=== PATIENT | female | born 1930 | race Caucasian/White ===

== ENCOUNTER 2017-07-04 12:55 | Inpatient (IN) | payer MEDICARE ==
[~2017-07-04] VITALS: Ht 157.5 cm; Wt 62.4 kg
[~2017-07-04 12:55] MED LIST: ARICEPT10 MG PO; ASPIRIN81 MG PO; Imdur PO; LAC-HYDRIN 5226 ML TOPICAL; LIDOCAINE HC10 MG/M3 IM; NITROSTAT0.4 MG SL; PEPCID20 MG PO; PREMARIN45 GM VG; PRILOSEC20 MG PO; PRINIVIL10 MG PO; PROZAC10 MG PO; Rocephin INJ IM; VITAMIN B-121000 MCG PO; VITAMIN D5000 UNIT PO; ZESTRIL40 MG PO
[2017-07-04] MEDS ORDERED: ACETAMINOPHEN325 MG PO (13:14)
[2017-07-04] MEDS ORDERED: IMODIUM2 MG PO (13:14)
[2017-07-04] MEDS ORDERED: ZOFRAN4 MG PO (13:15)
[2017-07-04 13:43] VITALS: BP 120/50; BMI 26.0
--- NOTE | 2017-07-04 14:30 | NUR ---
PATIENT IS ADMITTED TO DR. LYON AND DR. SALGUERO, SHE IS BROUGHT IN BY TWO EMS STAFF VIA STRETCHER FROM [facility]. APPARENTLY THIS AM SHE PUT HER CALL LIGHT ON AND WHEN A HEALTH POLICY MANAGER WENT IN TO ASSIST THE PATIENT, THE PATIENT BECAME VOLATILE VERBALLY, CURSING AND STATING "WHY THE HELL DID IT TAKE YOU SO LONG" PATIENT CONTINUED TO RANT AND RAVE AND THE HEALTH POLICY MANAGER LEFT THE ROOM TO ALLOW THE PATIENT TO CARRY ON ALONE. PATIENT THEN GOT UP OUT OF THE BED BY HERSELF AND WHEELED HERSELF TO WHERE THE HEALTH POLICY MANAGER WAS AND BEGAN KICKING, HITTING AND CURSING HER, ANOTHER STAFF MEMBER ATTEMPTED TO DEESCALATE THE PATIENT, BUT THE PATIENT THEN BEGAN CURSING THAT INDIVISUAL WELL. ON ARRIVAL PATIENT IS TRANSFERRED TO A W/C. SHE STARTS OFF PLEASANT AND COMPLIANT THEN SHE BEGINS TO CURSE AND TOLD THIS NURSE "F" YOU" EXPLAINED TO THE PATIENT THAT THAT IS INAPPROPRIATE BEHAVIOR. SHE HAS ASKED TO GO TO BED, BUT WE HAVE EXPLAINED THE RULES. SHE IS NOT HAPPY ABOUT THAT. SHE IS WEARING TWO RINGS, BOTH WHITE METAL ONE WITH A FLOWER DESIGN THE OTHER WITH PAINTED FLOWER DESIGN. PATIENT PREFERS TO KEEP THEM ON. PATIENT IS IN THE DAY ROOM AND HAS REFUSED TO LET LAB DRAW BLOOD FROM HER. DID CALL PATIENTS DAUGHTER TO GET A CODE WORD AND VERBAL CONSENTS. THE DAUGHTER SAYS HER MOTHER IS DIABETIC, AND HAS LUPUS, BUT THERE IS NO DOCUMENTATION FROM THE CUSTODIAL STATING EITHER ONE. PATIENT HAS HAD A RIGHT BREAST MASTECTOMY D/T CA.
[2017-07-04 19:30] VITALS: BP 117/29
--- NOTE | 2017-07-05 04:38 | NUR ---
B] PATIENT IS ALERT AND ORIENTED TO SELF, VERBALLY AGGRESSIVE AND INTRUSIVE, IMPATIENT, PATIENT STATED THAT IF WE DID NOT GET HER TO BED SHE WOULD THROW HERSELF IN THE FLOOR, I] ADMINISTERED SCHEDULED MEDICATIONS, MONITORED FOR SAFETY AND BEHAVIORS, R] MEDICATION COMPLIANT, DEFIANT AND LOOKING FOR A REASON TO BE MAD, P] CONTINUE PLAN OF CARE.
[2017-07-05 05:55] LABS: BASOPHILS 0.3 % (0-2); EOSINOPHILS 4.8 % (0-7); HEMATOCRIT 35.5 % (36.0-48.0); HEMOGLOBIN 11.5 g/dL (12-16); IMMATURE GRANULOCYTES 0.8 % (0-5); LYMPHOCYTES 24.5 % (15-50); MCH 30.7 pg (26.0-34.0); MCHC 32.4 g/dL (31.0-37.0); MCV 94.7 fL (80.0-100.0); MEAN PLATELET VOLUME 13.9 fL (7.4-10.4); MONOCYTES 11.5 % (2-11); NEUTROPHILS 58.1 % (40-80); RBC 3.75 10x6/uL (4.00-5.40); RDW 13.9 % (11.5-14.5); WBC 6.5 10x3/uL (4.8-10.8)
[2017-07-05 05:56] LABS: PLATELET COUNT 123 10x3/uL (130-400)
[2017-07-05 06:12] LABS: HEMOGLOBIN A1C 5.2 % (4.8-6.0)
[2017-07-05 07:00] VITALS: BP 134/33
[2017-07-05 10:30] LABS: ALBUMIN 3.3 g/dL (3.4-5.0); ANION GAP 19.6 mmol/L (8-16); BILIRUBIN - TOTAL 0.26 mg/dL (0.2-1.3); CALCIUM 10.8 mg/dL (8.5-10.1); CARBON DIOXIDE 18.4 mmol/L (21.0-32.0); CHOL - HDL RATIO 5.6 ratio (2.3-4.1); CREATININE - SERUM 4.3 mg/dL (0.6-1.3); LDL-HDL RATIO 3.8 ratio (1.5-3.5); PROTEIN - SERUM 7.3 g/dL (6.4-8.2); THYROID STIMULATING HORMONE 12.04 uIU/mL (0.36-3.74)
--- NOTE | 2017-07-05 10:46 | NUR ---
ATIVAN 0.5 PO GIVEN FOR ANXIETY.C/O SOB ,PULSE OX 99% ON ROOMAIR,HR 78 AND REGULAR.RESP.REG AND EVEN.SKIN PINK AND DRY.
--- NOTE | 2017-07-05 16:48 | NUR ---
RECEIVED SITTING UP IN WHEELCHAIR THIS AM.KNOWS SHE IS IN HOSPITAL BUT BECOMES AGGITATED WHEN ASKED IF SHE KNEW YEAR,YELLED "IM TIRED OF PEOPLE ASKING ME STUPID QUESTIONS".EXPLAINED TO HER I HAVE TO ASK EVERYONE .TOLD ME TO GET AWAY FROM HER.REFUSED BLOOD DRAW THIS AM BUT WAS COMPLIANT WITH MEDS.WILL CONTINUE WITH PLAN OF CARE,MONITOR FOR CHANGES AND SAFETY.SLEEPS MOST OF DAY IN RECLINER.
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
[2017-07-05 19:30] VITALS: BP 99/41
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
[2017-07-06 07:00] VITALS: BP 124/39
--- NOTE | 2017-07-06 08:30 | NUR ---
CALM AND COOPERATIVE WITH ASSESSMENT, SITTING IN RECLINER, DENIES ANY NEEDS AT THIS TIME. ASSESSMENT COMPLETED. WILL CONTINUE TO MONITOR CARE.
[2017-07-06 10:22] LABS: ANION GAP 18.2 mmol/L (8-16); CALCIUM 10.5 mg/dL (8.5-10.1); CREATININE - SERUM 4.2 mg/dL (0.6-1.3); POTASSIUM - SERUM 5.2 mmol/L (3.5-5.1)
[2017-07-06 10:27] LABS: HEMOGLOBIN A1C 6.1 % (4.8-6.0)
[2017-07-06 10:41] VITALS: Ht 157.5 cm; Wt 62.4 kg
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
--- NOTE | 2017-07-06 10:55 | NUR ---
ASSISTED PATIENT TO BATHROOM WITHOUT INCIDENT. SHE IA ABLE TO ASSIT WITH TRANSFER.
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
[2017-07-06 19:54] VITALS: BP 112/42
--- NOTE | 2017-07-06 20:45 | NUR ---
RECEIVED IN DAYROOM. SITTING IN A RECLINER. KEEPING TO HERSELF. NOT SOCIALIZING. CALM AND COOPERATIVE WITH CARE AND ASSESSMENTS. SHE WAS PULLING DRESSING ON WRIST OFF. REDIRECTED AND REORIENTED NEEDED. RESTING IN BED EYES OPEN AT THIS TIME. CONTINUE PLAN OF CARE
[2017-07-07 08:00] VITALS: BP 110/30
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
--- NOTE | 2017-07-07 11:10 | NUR ---
AWAKE AND ALERT THIS AM. ASSESSMENT COMPLETED. CALM AND COOPERATIVE WITH CARE. COMPLIANT WITH TAKING PRESCRIBED MEDICATIONS. SITTING QUIETLY IN RECLINER, WITH NO AGGRESSIVE BEHAVIOR. WILL CONTINUE PLAN OF CARE.
[2017-07-07 14:24] LABS: APPEARANCE CLEAR (CLEAR); BACTERIA MODERATE /hpf (NONE SEEN); BILIRUBIN NEGATIVE (NEGATIVE); COLOR YELLOW (YELLOW); GLUCOSE NEGATIVE (NEGATIVE); KETONE NEGATIVE (NEGATIVE); LEUKOCYTE ESTERASE TRACE (NEGATIVE); NITRITE NEGATIVE (NEGATIVE); PROTEIN TRACE mg/dL (NEGATIVE); UROBILINOGEN NORMAL (NORMAL); WHITE CELLS - URINE 0-5 /hpf (0-5)
[2017-07-07 14:25] LABS: MUCUS <1+ /lpf (NONE SEEN)
--- NOTE | 2017-07-07 20:07 | NUR ---
RECEIVED IN DAYROOM. SITTING IN RECLINING CHAIR. CONFUSED. CALM AND COOPERATIVE WITH CARE AND ASSESSMENTS. NO SIGNS OF AGGRESSION. REDIRECT AND REORIENT NEEDED. CONTINUES TO SIT QUIETLY IN RECLINER. CONTINUE PLAN OF CARE
[2017-07-07 21:15] VITALS: BP 109/40
[2017-07-08 06:14] LABS: RAPID PLASMA REAGIN Non Reactive (Non Reactive)
[2017-07-08 07:48] LABS: ANION GAP 16.3 mmol/L (8-16); CALCIUM 10.2 mg/dL (8.5-10.1); CARBON DIOXIDE 19.7 mmol/L (21.0-32.0); CREATININE - SERUM 3.3 mg/dL (0.6-1.3)
[2017-07-08 07:58] VITALS: BP 112/32
[2017-07-08 09:16] LABS: FOLATE (FOLIC ACID) - SERUM 10.3 ng/mL (>3.0)
[2017-07-08 10:17] LABS: VITAMIN D 25 HYDROXY 56.1 ng/mL (30.0-100.0)
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
--- NOTE | 2017-07-08 14:31 | NUR ---
B) PATIENT IS ALERT AND ORIENTED TO SELF ONLY, SHE CAN BE TERSE AND IRRITABLE. SHE IS CONFUSED, SHE HAS NO INSIGHT INTO HER SITUATION OR ILLNESS. SHA CAN STAND TO TRANSFER WITH ASSIST. PATIENT HAS NOT SHOWN ANY AGGRESSION TODAY, BUT SHE CAN CURSE AND MOUTH AT TIMES. I) PROVIDE PRESCRIBED MEDS. R) PATIENT IS COMPLIANT WITH MEDS, CRUSHED IN ICE CREAM SHE DOES WELL. P) CONTINUE POC.
[2017-07-08 19:55] VITALS: BP 127/68
--- NOTE | 2017-07-09 00:28 | NUR ---
B) Patient is alert and oriented to self, watching TV, friendly and pleasant to staff, no outburst or cussing noted. I) Administered scheduled medications, monitored for safety, R) Medication compliant. cooperative and calm this shift. P) Continue plan of care.
[2017-07-09 08:23] VITALS: BP 112/35
--- NOTE | 2017-07-09 14:00 | NUR ---
B) PATIENT IS AWAKE AND ALERT, SHE IS PLEASANT AND HAS NOT BEEN AGGRESSIVE TODAY. SHE DOES NOT WALK, BUT CAN SELF PROPEL IN THE W/C. I) PROVIDE PRESCRIBED MEDS. R) PATIENT IS COMPLIANT WITH MEDS. P) CONTINUE POC.
[2017-07-09 19:34] VITALS: BP 110/36
--- NOTE | 2017-07-10 02:19 | NUR ---
B) Patient is alert and oriented to self, calm and cooperative, quiet and keeping to herself, I) Administered scheduled medications, monitored for safety, R) Medication compliant, pleasant and friendly, P) Continue plan of care.
[2017-07-10 07:53] VITALS: BP 114/42
--- NOTE | 2017-07-10 07:53 | PN ---
PATIENT:KEATON COLLADO MEDICAL RECORD: [id number] LOCATION:[facility] ADMISSION DATE: 07/04/17 PROGRESS NOTE DATE OF SERVICE: 07/09/2017 SUBJECTIVE: No new complaint. OBJECTIVE: The patient has been very cooperative. She is taking medications as prescribed. On exam, mood is euthymic. Affect is bland. Speech is somewhat terse today. Content of thought is negative for overt psychosis. Sensorium is unchanged. ASSESSMENT: No change in diagnosis. PLAN: 1. Continue all current medications. 2. Continue supportive therapy. TRANSINT:[id number] Voice Confirmation ID: [id number] DOCUMENT ID: [id number] BHAKTI BLANTON III, MD at 0753 CC: [id number] DICTATION DATE: 07/09/17 1203 RENAL MEDICINE SPECIALIST: 07/09/17 1258 ADM IN [place] [id number] [place] [address]
--- NOTE | 2017-07-10 08:15 | NUR ---
OBTAINED URINE SPECIMEN, BASIA VÁSQUEZ TAKING TO LAB.
[2017-07-10 09:54] LABS: APPEARANCE CLEAR (CLEAR); BACTERIA FEW /hpf (NONE SEEN); BILIRUBIN NEGATIVE (NEGATIVE); COLOR DK YELLOW (YELLOW); EPITHELIAL CELLS 0-5 /hpf (0-5); GLUCOSE NEGATIVE (NEGATIVE); KETONE NEGATIVE (NEGATIVE); LEUKOCYTE ESTERASE NEGATIVE (NEGATIVE); MUCUS >1+ /lpf (NONE SEEN); NITRITE NEGATIVE (NEGATIVE); PROTEIN NEGATIVE (NEGATIVE); RED CELLS - URINE OCC /hpf (0-5); SPECIFIC GRAVITY 1.025 (1.005-1.020); UROBILINOGEN NORMAL (NORMAL); WHITE CELLS - URINE RARE /hpf (0-5)
[2017-07-10 09:55] LABS: HYALINE CAST OCC /lpf (NONE SEEN); WAXY CAST RARE /lpf (NONE SEEN)
[2017-07-10 19:51] VITALS: BP 114/36
--- NOTE | 2017-07-10 21:40 | PN ---
PATIENT:KEATON COLLADO MEDICAL RECORD: [id number] LOCATION:[facility] ADMISSION DATE: 07/04/17 PROGRESS NOTE DATE OF SERVICE: 07/10/2017 SUBJECTIVE: No new complaint is noted. OBJECTIVE: The patient has been generally cooperative. She is irritable from time to time. On exam, mood is for the most part euthymic. Affect is somewhat brittle. Speech tends to be terse. Content of thought shows no evidence of psychosis. Sensorium shows no change. ASSESSMENT: No change in diagnosis. PLAN: 1. Continue all current medications. 2. Continue supportive therapy. TRANSINT:[id number] Voice Confirmation ID: [id number] DOCUMENT ID: [id number] BHAKTI BLANTON III, MD at 2140 CC: [id number] DICTATION DATE: 07/10/17 1233 JEWEL GRINDER: 07/10/17 1327 ADM IN [place] [id number] [place] [id number]
--- NOTE | 2017-07-11 03:35 | NUR ---
B) Patient alert and oriented to self and hospital, calm and cooperative with care and assessment, patient able to make her needs known, I) Administered scheduled medications, monitored for falls and safety, redirected as needed. R) Medication compliant, pleasant and friendly. P) Continue plan of care.
[2017-07-11 10:20] VITALS: BP 134/55
--- NOTE | 2017-07-11 10:30 | NUR ---
ASSESSMENT COMPLETED. AWAKE AND ALERT. ADMINISTERED PRESCRIBED MEDICATIONS. COMPLIANT WITH TAKING MEDICATIONS. RESTING IN RECLINER. CONTINUE PLAN OF CARE.
[2017-07-11 19:30] VITALS: BP 97/56
--- NOTE | 2017-07-12 04:10 | NUR ---
B) Patient alert and oriented to self and being in a hospital, restless and anxious at HS, stated that she could not breath, pulseox at 98%, I) Administered scheduled medications, PRN Ativan 0.5 mg PO given at 22:30 for anxiety, repositioned patient. R) Medication compliant, resting quietly at 23:00 P) Continue plan of care.
[2017-07-12 07:00] VITALS: BP 100/55
[2017-07-12 07:07] LABS: BASOPHILS 0.2 % (0-2); EOSINOPHILS 3.6 % (0-7); HEMATOCRIT 27.5 % (36.0-48.0); HEMOGLOBIN 9.3 g/dL (12-16); IMMATURE GRANULOCYTES 0.3 % (0-5); LYMPHOCYTES 19.9 % (15-50); MCH 31.1 pg (26.0-34.0); MCHC 33.8 g/dL (31.0-37.0); MEAN PLATELET VOLUME 13.4 fL (7.4-10.4); PLATELET COUNT 132 10x3/uL (130-400); RBC 2.99 10x6/uL (4.00-5.40); RDW 13.7 % (11.5-14.5); WBC 8.8 10x3/uL (4.8-10.8)
[2017-07-12 07:14] LABS: ANION GAP 15.7 mmol/L (8-16); CALCIUM 9.9 mg/dL (8.5-10.1); CARBON DIOXIDE 22.1 mmol/L (21.0-32.0); CREATININE - SERUM 2.9 mg/dL (0.6-1.3); POTASSIUM - SERUM 4.8 mmol/L (3.5-5.1)
--- NOTE | 2017-07-12 12:59 | NUR ---
ATIVAN GIVEN PO THIS AM FOR ANXIETY,CURSEING AND YELLING AT STAFF.GOOD RESPONSE TO ATIVAN.IS ORIENTED TO SELF AND HOSPITAL BUT NOT TO RESIDENTIAL,OR REASON FOR BEING HERE.COMPLIANT WITH MEDS.WILL CONTINUE WITH PLAN OF CARE,MONITOR FOR CHANGES AND NEEDS.
--- NOTE | 2017-07-13 00:18 | NUR ---
RECEIVED IN BEDROOM. LAYING IN BED EYS CLOSEED. RESPONDS TO VOICE. CALM AND COOPERATIVE WITH CARE AND ASSESSMENTS. NO SIGNS OF AGGRESSION. REDIRECT AND REORIENT NEEDED. RESTING EYES CLOSED AT THIS TIME. CONTINUE PLAN OF CARE
[2017-07-13 08:30] VITALS: BP 108/43
--- NOTE | 2017-07-13 09:48 | PN ---
PATIENT:KEATON COLLADO MEDICAL RECORD: [id number] LOCATION:[facility] ADMISSION DATE: 07/04/17 PROGRESS NOTE DATE OF SERVICE: 07/08/2017 SUBJECTIVE: The patient's case was discussed with staff. She has no new complaint. OBJECTIVE: The patient denies intent to harm herself or others. She generally tolerates her medicines well. She is significantly impaired and has not been aggressive today. ASSESSMENT: No change in diagnoses. PLAN: Supportive and educational interventions were made. Care Home prognosis is guarded. TRANSINT:[id number] Voice Confirmation ID: [id number] DOCUMENT ID: [id number] BRIANNA LYON MD at 0948 CC: [id number] DICTATION DATE: 07/08/17 1258 WATERSHED PROGRAM MANAGER: 07/08/17 1431 ADM IN [facility] [address] [place] [address]
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
--- NOTE | 2017-07-13 11:26 | PN ---
PATIENT:KEATON COLLADO MEDICAL RECORD: [id number] LOCATION:[facility] ADMISSION DATE: 07/04/17 PROGRESS NOTE DATE OF SERVICE: 07/12/2017 SUBJECTIVE: No new complaint. OBJECTIVE: The patient continues to be somewhat intrusive and shows some lability of affect. On exam, mood is slightly irritable. Affect is brittle. Speech is somewhat tangential and coarse. Content of thought is unchanged. Sensorium is unchanged. ASSESSMENT: No change in diagnoses. PLAN: 1. Continue all current medications. 2. Continue supportive therapy. TRANSINT:[id number] Voice Confirmation ID: [id number] DOCUMENT ID: [id number] BHAKTI BLANTON III, MD at 1126 CC: [id number] DICTATION DATE: 07/12/172149 HYDRAULIC TECHNICIAN: 07/13/17 0017 ADM IN [facility] [address] [place] [address]
[2017-07-13 19:25] VITALS: BP 99/41
--- NOTE | 2017-07-13 19:53 | NUR ---
RECEIVED IN HALLWAY, OUTSIDE OF NURSES STAION. MAKING NEGATIVE STATEMENTS TO STAFF. CALM AND COOPERATIVE WITH CARE AND ASSESSMENTS. REDIRECT AND REORIENT NEEDED. CONTINUES TO SIT IN HALLWAY. CONTINUE PLAN OF CARE
[2017-07-14 07:00] VITALS: BP 104/43
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
--- NOTE | 2017-07-14 10:07 | NUR ---
NUTRITION F/U CHART REVIEWED, PT TOLERATING REG DIET. ENSURE BID. 25 TO 50% INTAKE RECENT MEALS. +BM RECORDED. WILL CONTINUE TO PROVIDE DIET, ENSURE. MONITOR PO INTAKE. RD FOLLOWING
--- NOTE | 2017-07-14 11:00 | NUR ---
AWAKE AND ALERT TO NAME ONLY. SAYS SHE DOESN'T FEEL GOOD. ADMINISTER PRESCRIBED MEDS AND COMPLIANT WITH TAKING. LYING ON SOFA RESTING THIS AFTERNOON. REFUSES TO EAT LUNCH AND SUPPER. SHE DID DRINK AN ENSURE. SAFETY MAINTAINED. WILL CONTINUE PLAN OF CARE.
--- NOTE | 2017-07-14 13:26 | NUR ---
PT WAS MEDICATED WITH [id number] MG D/T ABD PAIN RATING 8/10 ON PAIN SCALE.
[2017-07-14 19:37] VITALS: BP 111/34
--- NOTE | 2017-07-14 19:57 | NUR ---
RECEIVED IN HALLWAY. SITTING IN A WHEELCHAIR OUTSIDE OF NURSES STATION. CALM AND COOPERATIVE WITH CARE AND ASSESSMENTS. NO SIGNS OF AGGRESSION. REDIRECT AND REORIENT NEEDED. CONTINUES TO SIT QUIETLY IN CHAIR. CONTINUE PLAN OF CARE
[2017-07-15 08:48] VITALS: BP 114/43
--- NOTE | 2017-07-15 10:00 | NUR ---
Rec'd pt in dining room for b'fast, alert, calm, no aggressioin noted. Meds admin per orders. Group therpay provided. No s/s adverse reaction to meds. Participated in group. Cont plan of care including meds and group therapy.
--- NOTE | 2017-07-15 15:29 | PN ---
PATIENT:KEATON COLLADO MEDICAL RECORD: [id number] LOCATION:[facility] ADMISSION DATE: 07/04/17 PROGRESS NOTE DATE OF SERVICE: 07/14/2017 SUBJECTIVE: The patient's case was discussed with staff. She has no new complaint. OBJECTIVE: The patient denies intent to harm herself or others. She tolerates her medicines well. Eye contact is poor. ASSESSMENT: No change in diagnoses. PLAN: The patient was aggressive yesterday, but has not been aggressive today. She has very limited insight about her situation. Her current medicines have been reviewed and will be maintained. Both supportive and educational interventions were made. TRANSINT:[id number] Voice Confirmation ID: [id number] DOCUMENT ID: [id number] BRIANNA LYON MD at 1529 CC: [id number] DICTATION DATE: 07/14/17 1444 BAR MACHINE OPERATOR: 07/14/171950 ADM IN [facility] [address] [place] [address]
[2017-07-15 19:30] VITALS: BP 101/48
--- NOTE | 2017-07-15 20:40 | NUR ---
B) RECEIVED IN HALLWAY SITTING IN W/C. CALM AND COOPERATIVE WITH CARE, NO AGGRESSIVE BEHAVIOR NOTED. I) ADMINISTERED MEDS, ASSESSMENT COMPLETED, VSS. R) MEDICATIONS COMPLIANT, MAINTAINED SAFETY PRECAUTIONS. P CONTINUE PLAN OF CARE.
[2017-07-16 09:41] VITALS: BP 114/51
--- NOTE | 2017-07-16 12:33 | PN ---
PATIENT:KEATON COLLADO MEDICAL RECORD: [id number] LOCATION:[facility] ADMISSION DATE: 07/04/17 PROGRESS NOTE DATE OF SERVICE: 07/15/2017 SUBJECTIVE: The patient's case was discussed with staff. She has no new complaint. OBJECTIVE: The patient is in good behavioral control with limited insight about her condition. She tolerates her medicines well. ASSESSMENT: No change in diagnoses. PLAN: Brief supportive and educational interventions were made. The patient's long-term prognosis is guarded. TRANSINT:[id number] Voice Confirmation ID: [id number] DOCUMENT ID: [id number] BRIANNA LYON MD at 1233 CC: [id number] DICTATION DATE: 07/15/17 1548 SHEET CATCHER: 07/15/17 2157 ADM IN [place] [address] [place] [address]
--- NOTE | 2017-07-16 14:00 | NUR ---
B) PATIENT IS ALERT AND ORIENTED TO HERSELF ONLY, SHE PARTICIPATES IN GROUPS AND ACTIVITES. I) PROVIDE PRESCRIBED MEDS. R) PATIENT IS COMPLIANT WITH MEDS, SHE CURSES LIKE A SPINNER CONCRETE PIPE AND SHE KNOWS IT, BUT LAUGHS ABOUT IT. SHE HAS NOT SHOWN ANY AGITATION OR AGGRESSION TODAY. P) CONTINUE POC.
[2017-07-16 19:56] VITALS: BP 92/58
--- NOTE | 2017-07-17 04:12 | NUR ---
B) Patient alert and oriented to self and hospital, grumpy curses at times, watching TV, social with staff, I) Administered scheduled medications, monitored for safety and falls, R) Medication compliant, no behaviors noted, P) Continue plan of care.
[2017-07-17 09:30] VITALS: BP 131/69
--- NOTE | 2017-07-17 11:54 | PN ---
PATIENT:KEATON COLLADO MEDICAL RECORD: [id number] LOCATION:[facility] ADMISSION DATE: 07/04/17 PROGRESS NOTE DATE OF SERVICE: 07/16/2017 SUBJECTIVE: The patient's case was discussed with staff. She has no new complaint. OBJECTIVE: The patient is severely impaired cognitively, but has not been aggressive today. She is very limited in her insight and only partially oriented. She is not eating very well, but is receiving Megace to stimulate her appetite. ASSESSMENT: No change in diagnoses. PLAN: Current medicines have been reviewed and will be maintained. Her long-term prognosis is guarded. TRANSINT:[id number] Voice Confirmation ID: [id number] DOCUMENT ID: [id number] BRIANNA LYON MD at 1154 CC: [id number] DICTATION DATE: 07/16/17 1249 ELEMENTARY INSTRUCTIONAL COACH: 07/16/17 [address] [facility] [address] [place] [address]
[2017-07-17 19:12] LABS: AEROBE ID Final report (()); RESULT 1 Aerococcus viridans (())
[2017-07-17 19:58] VITALS: BP 107/48
--- NOTE | 2017-07-18 04:34 | NUR ---
B) Patient alert and oriented to self, Calm and cooperative, curses at times, I) Administered scheduled medications, PRN Ativan given at 0300 for anxiety, monitored for safety. R) Medication compliant, resting quietly now in bed. P) Continue plan of care.
[2017-07-18 09:50] VITALS: BP 120/58
--- NOTE | 2017-07-18 12:17 | PN ---
PATIENT:KEATON COLLADO MEDICAL RECORD: [id number] LOCATION:[facility] ADMISSION DATE: 07/04/17 PROGRESS NOTE DATE OF SERVICE: 07/17/2017 SUBJECTIVE: The patient's case was discussed with staff. She has no new complaint. OBJECTIVE: The patient denies intent to harm herself or others. She has been quite irritable with other patients and staff, but nothing that would rise to the level of being dangerous or wildly inappropriate. Certainly some of the chaos on the unit can be distressing and for her to just shout out for someone else to "shut up" is not appropriate, but not a behavior that I would view as unmanageable. My biggest concern right now is that she is not eating. Efforts are being made to assist her, to stimulate her appetite with Megace and to try to find something that she likes. Yesterday, she ate almost nothing. ASSESSMENT: No change in diagnoses. PLAN: The patient is not going to be able to survive if she does not start eating better. I suspect that this appetite decrease is something that is often seen with advanced dementias. From a behavioral standpoint, she is much better, but if we cannot find some way to put more nutrition into her, her prognosis is extremely poor. TRANSINT:[id number] Voice Confirmation ID: [id number] DOCUMENT ID: [id number] BRIANNA LYON MD at 1217 CC: [id number] DICTATION DATE: 07/17/17 1215 YARD CONDUCTOR: 07/17/17 1357 ADM IN [place] [id number] [place] [address]
[2017-07-18] MEDS ORDERED: MEGACE40 MG PO (12:51)
[2017-07-18] MEDS ORDERED: NAMENDA5 MG PO (12:51)
[2017-07-18] MEDS ORDERED: LINZESS145 MCG PO (12:52)
[2017-07-18] MEDS ORDERED: SYNTHROID50 MCG PO (12:52)
[2017-07-18] MEDS ORDERED: PERPHENAZINE2 MG PO (12:52)
--- NOTE | 2017-07-18 13:16 | NUR ---
B) PATIENT IS AWAKE AND ALERT SHE DOES SAY SHE DOES NOT FEEL WELL TODAY, EXPLAINED TO HER THAT IT MAY BE BECAUSE SHE IS NOT EATING. THIS MORNING ALL SHE ATE WAS A BANANA AND DRANK AN ENSURE, LUNCH SHE HAD NOTHING. SHE SAYS "I FEEL SO DIZZY" ASSISTING PATIENT FROM W/C TO [facility] CHAIR TODAY AND PATIENT IS NOT WALKING. PATIENT IS ORIENTED TO SELF ONLY AND YELLS OUT "WHY ARE WE SITTING HERE LIKE A BUNCH OF LOONS?" EXPLAINED TO HER PROBABLY SO WE CAN MAKE SURE YOU BEHAVE. SHE SAID "WELL, HELL THAT AINT EVER GONNA HAPPEN" I) PROVIDE PRESCRIBED MEDS. R) PATIENT IS COMPLIANT WITH MEDS. P) CONTINUE POC.
--- NOTE | 2017-07-18 16:18 | NUR ---
PATIENT C/O FEELING ANXIOUS, PROVIDED HALDOL 2 MG PO. LET PATIENT KNOW WHAT SHE WAS TAKING AND SHE SAID "OH YES, I KNOW WHAT THAT IS, I'VE HAD THAT BEFORE" EXPLAINED TO HER THAT SHE HAD ATIVAN LAST NIGHT, SHE SAID "WELL, I DON'T WANT NO MORE OF THAT." WILL MONITOR.
[2017-07-18 20:37] VITALS: BP 105/53
[2017-07-18 20:55] VITALS: BP 105/53
--- NOTE | 2017-07-19 04:30 | NUR ---
B) Patient alert and oriented to self and hospital, anxious and restless at times, I) Administered scheduled medications, PRN Ativan 0.5 mg given for anxiety at 20:50 and 02:17, R) Medication compliant, resting now quietly in bed, P) Continue plan of care.
[2017-07-19 07:00] VITALS: BP 106/47
--- NOTE | 2017-07-19 14:43 | NUR ---
IS ORIENTED TO [facility].BECOMES AGGITATED WITH ASSESSMENT,STATES THEY ARE STUPID QUESTIONS.CUSSES.REQUIRES ASSIST WITH TRANSFERS.VERY POOR APPETITE.COMPLIANT WITH MEDS.WILL CONTINUE WITH PLAN OF CARE,MONITOR FOR CHANGES AND SAFETY.
[2017-07-19 20:50] VITALS: BP 125/72
--- NOTE | 2017-07-19 21:20 | NUR ---
RECEIVED IN BEDROOM. RESTING IN BED WITH EYES CLOSED. RESPONDS TO VOICE. CALM AND COOPERATIVE WITH CARE AND ASSESSMENTS. NO SIGNS OF AGGRESSION. REDIRECT AND REORIENT NEEDED. RESTING IN BED EYES CLOSED AT THIS TIME. CONTINUE PLAN OF CARE
[2017-07-20 07:00] VITALS: BP 125/67
--- NOTE | 2017-07-20 13:45 | PN ---
PATIENT:KEATON COLLADO MEDICAL RECORD: [id number] LOCATION:[facility] ADMISSION DATE: 07/04/17 PROGRESS NOTE DATE OF SERVICE: 07/18/2017 SUBJECTIVE: The patient's case was discussed with staff. She has no new complaint. OBJECTIVE: The patient is severely impaired cognitively. She has not been aggressive, but she was quite confused and somewhat agitated last night. At that time, she did require some p.r.n. medication for agitation. ASSESSMENT: No change in diagnoses. PLAN: Brief supportive and educational interventions were made. Long-Term prognosis is guarded. TRANSINT:[id number] Voice Confirmation ID: [id number] DOCUMENT ID: [id number] BRIANNA LYON MD at 1345 CC: [id number] DICTATION DATE: 07/18/17 1250 TAPERING MACHINE OPERATOR: 07/18/172024 ADM IN [place] [id number] [place] [id number]
--- NOTE | 2017-07-20 14:03 | NUR ---
CALM AND COOPERATIVE WITH CARE. ASSESSMENT COMPLETED. NO AGGRESSION NOTED. MEDICATIONS GIVEN PRESCRIBED. FALL PRECAUTIONS MAINTAINED. WILL CONTINUE TO MONITOR. PATIENT IS SET TO DISCHARGE TODAY. ALL DISCHARGE PAPERWORK REVIEWEDD AND FAXED TO [facility]. ALL BELONGINGS BAGGED AND ACCOUNTED FOR. AMBULANCE HERE TO PEDIATRIC OCCUPATIONAL THERAPIST PATIENT.
--- NOTE | 2017-07-21 14:04 | PN ---
PATIENT:KEATON COLLADO MEDICAL RECORD: [id number] LOCATION:[facility] ADMISSION DATE: 07/04/17 PROGRESS NOTE DATE OF SERVICE: 07/20/2017 SUBJECTIVE: The patient's case was discussed with staff. She has no new complaint. OBJECTIVE: The patient denies intent to harm herself or others. She generally tolerates her medicines well. She is severely impaired cognitively, but has not been aggressive physically or verbally. ASSESSMENT: No change in diagnoses. PLAN: The patient will be transitioned out of the hospital today. Her long-term prognosis is guarded. Followup will be with her primary care assisted physician. TRANSINT:[id number] Voice Confirmation ID: [id number] DOCUMENT ID: [id number] BRIANNA LYON MD at 1404 CC: [id number] DICTATION DATE: 07/20/17 1358 SUBSTATION OPERATOR AUTOMATIC: 07/20/17 1424 DIS IN 07/20/17 [place] [id number] [place] [address]
== END 2017-07-20 14:02 | DRG 57 ==
LOC: D.PSYCH 12:55
PROVIDERS: Family Medicine; ADMIT Psychiatry & Neurology Psychiatry
DX: G30.1 Alzheimer's disease with late onset (principal); F02.81 Dementia in other diseases classified elsewhere, unspecified severity, with behavioral disturbance; N17.9 Acute kidney failure, unspecified; E03.9 Hypothyroidism, unspecified; I10 Essential (primary) hypertension; K21.9 Gastro-esophageal reflux disease without esophagitis; I25.10 Atherosclerotic heart disease of native coronary artery without angina pectoris; E55.9 Vitamin D deficiency, unspecified; E53.8 Deficiency of other specified B group vitamins; Z74.09 Other reduced mobility; E87.5 Hyperkalemia; K59.00 Constipation, unspecified

== ENCOUNTER 2017-07-25 17:17 | Inpatient (IN) | payer MEDICARE ==
[~2017-07-25] VITALS: Ht 157.5 cm; Wt 70.5 kg
[~2017-07-25 17:17] MED LIST changes: +ACETAMINOPHEN325 MG PO; +IMODIUM2 MG PO; +LINZESS145 MCG PO; +MEGACE40 MG PO; +NAMENDA5 MG PO; +PERPHENAZINE2 MG PO; +SYNTHROID50 MCG PO; +ZOFRAN4 MG PO
[2017-07-25 18:14] LABS: BASOPHILS 0.1 % (0-2); EOSINOPHILS 0.1 % (0-7); HEMOGLOBIN 10.8 g/dL (12-16); IMMATURE GRANULOCYTES 0.6 % (0-5); LYMPHOCYTES 7.5 % (15-50); MCH 30.9 pg (26.0-34.0); MCHC 31.8 g/dL (31.0-37.0); MCV 97.4 fL (80.0-100.0); MEAN PLATELET VOLUME 12.5 fL (7.4-10.4); NEUTROPHILS 86.7 % (40-80); RBC 3.49 10x6/uL (4.00-5.40); RDW 15.4 % (11.5-14.5)
[2017-07-25 18:15] LABS: PLATELET COUNT 274 10x3/uL (130-400)
[2017-07-25 18:28] LABS: ALBUMIN 2.7 g/dL (3.4-5.0); ANION GAP 14.6 mmol/L (8-16); BILIRUBIN - TOTAL 0.44 mg/dL (0.2-1.3); CALCIUM 8.5 mg/dL (8.5-10.1); CARBON DIOXIDE 22.5 mmol/L (21.0-32.0); CREATININE - SERUM 2.9 mg/dL (0.6-1.3); POTASSIUM - SERUM 4.1 mmol/L (3.5-5.1); PROTEIN - SERUM 7.3 g/dL (6.4-8.2)
[2017-07-25 18:45] LABS: TROPONIN-I 0.249 ng/mL (0.000-0.060)
--- NOTE | 2017-07-25 21:44 | NUR ---
REPORT FROM GLENNY IN ER. PT BEING ADMITTED FOR COMFORT MEASURES S/P CODE IN ER. FAMILY PRESENT. PT NOW A DNR.
--- NOTE | 2017-07-25 22:08 | NUR ---
ADMIT TO ROOM 2140 AT 2200 FROM ER. TRANSFERRED FROM STRETCHER TO BED BY STAFF X 3, THIS ROUSED PT AND SHE BEGAN TO SHOW DISTRESS AND MOANING/GROANING IN PAIN. AFTER GETTING PATIENT SETTLED IN THE BED AND PULLED UP, PT THEN CALMED DOWN AND STOPPED MOANING AND GROANING. FAMILY NOW IN ROOM. COMFORT MEASURES IN PLACE. ADMISSION ASSESSMENT AND HISTORY COMPLETED.
[2017-07-25 22:54] VITALS: Ht 157.5 cm; Wt 70.5 kg
--- NOTE | 2017-07-25 23:30 | NUR ---
CALLED TO ROOM BY FAMILY, PT TAKING FINAL BREATHS. STAYED WITH FAMILY UNTIL PT WITH ABSENCE OF BREATHING/HEARTRATE. CALL TO ER AND AWAITING MD TO PRONOUNCE.
--- NOTE | 2017-07-25 23:59 | NUR ---
PT PRONOUNCED BY ER MD, DR RING , AT 4837. NICK CALLED AND NOTIFIED OF . GLASS BLOWING LATHE OPERATOR CALLED/AWAITING RETURN CALL.
== END 2017-07-25 23:52 | DRG 310 ==
LOC: D.ER 17:17 → D.M2 21:21
PROVIDERS: Physician Assistant Medical; ADMIT Family Medicine
PROC: 5A12012 Performance of Cardiac Output, Single, Manual (ICD-10-PCS; principal; 2017-07-25)
PROC: 0BH17EZ Insertion of Endotracheal Airway into Trachea, Via Natural or Artificial Opening (ICD-10-PCS; 2017-07-25)
DX: I48.91 Unspecified atrial fibrillation (principal); R79.89 Other specified abnormal findings of blood chemistry; I25.10 Atherosclerotic heart disease of native coronary artery without angina pectoris; Z95.5 Presence of coronary angioplasty implant and graft; F03.90 Unspecified dementia, unspecified severity, without behavioral disturbance, psychotic disturbance, mood disturbance, and anxiety